=== PATIENT | male | born 1950 | race Two or more races ===

== ENCOUNTER 2019-05-30 16:11 | Emergency (ER) | payer MEDICARE, BC ==
[~2019-05-30] VITALS: Ht 177.8 cm; Wt 77.1 kg
[2019-05-30] MEDS ORDERED: SODIUM CHLORIDE 0.9% 1,000 ML IV ONE (16:25)
[2019-05-30 17:17] LABS: Basophils # (auto) 0 uL; Basophils % (auto) 0.4 % (0.0-2.0); Eosinophils # (auto) 0.2 uL; Eosinophils % (auto) 1.3 % (0.0-7.0); Hemoglobin 15.8 g/dL (13.5-17.5); Lymphocytes % (auto) 8.7 % (10.0-50.0); Mean Corpuscular Hgb Conc. 34.3 g/dL (32.0-36.0); Mean Corpuscular Volume 87.4 fL (80.0-100.0); Monocytes # (auto) 0.8 uL; Monocytes % (auto) 6.9 % (0.0-12.0); Neutrophils # (auto) 9.9 uL; Neutrophils % (auto) 82.7 % (37.0-80.0); Nucleated Red Blood Cells % 0.1 %; Platelet Count (auto) 227 10^3/uL (140-450); Red Blood Cells 5.26 10^6/uL (4.5-5.90); Red Cell Distribution Width 13.3 % (11.8-14.3); White Blood Cell 11.9 10^3/uL (4.4-10.8)
[2019-05-30 17:34] LABS: Alanine Aminotransferase 23 U/L (16-61); Anion Gap 7 (5-15); Blood Urea Nitrogen 17 mg/dL (7-18); Calcium 8.6 mg/dL (8.5-10.1); Carbon Dioxide 25 mmol/L (21-32); Chloride 106 mmol/L (98-107); Glucose 135 mg/dL (74-106); Potassium 3.6 mmol/L (3.5-5.1); Sodium 138 mmol/L (136-145)
[2019-05-30 17:40] LABS: Alkaline Phosphatase 96 U/L (45-117); Aspartate Aminotransferase 20 U/L (15-37); BUN/Creatinine Ratio 15.6; Bilirubin, Total 0.6 mg/dL (0.2-1.0); GFR African American 86 mL/min; GFR Non-African American 71 mL/min; Total Protein 7.7 g/dL (6.4-8.2)
[2019-05-30 19:00] VITALS: BP 153/77
== END 2019-05-30 19:05 | disposition home or self-care (01) ==
LOC: EDBD 16:11 → ER 16:21
DX: R55 Syncope and collapse (principal); R00.1 Bradycardia, unspecified; I10 Essential (primary) hypertension
CPT/HCPCS: 36415; 70450; 71046; 80053; 83735; 84443; 84484; 85025; 85379; 93005; 96360; 96361; 99284; J7030

== ENCOUNTER 2022-10-29 19:46 | Inpatient (IN) | payer BC, OTHER ==
[~2022-10-29] VITALS: Ht 175.3 cm; Wt 80.0 kg
[2022-10-29] MEDS ORDERED: ASPirin 81 mg TAB PO ONE (20:15)
[2022-10-29] MEDS ORDERED: cloNIDine HCL 0.1 MG TAB PO ONE (20:15)
[2022-10-29 21:02] LABS: Basophils # (auto) 0.1 10 ^3/uL (0-0.2); Basophils % (auto) 0.6 % (0.0-2.0); Eosinophils # (auto) 0.2 10 ^3/uL (0-0.8); Eosinophils % (auto) 1.5 % (0.0-7.0); Hemoglobin 15.8 g/dL (13.5-17.5); Lymphocytes % (auto) 19.3 % (10.0-50.0); Mean Corpuscular Volume 88.5 fL (80.0-100.0); Monocytes # (auto) 0.8 10 ^3/uL (0-1.3); Neutrophils # (auto) 7.2 10 ^3/uL (1.6-8.6); Neutrophils % (auto) 70.6 % (37.0-80.0); Nucleated Red Blood Cells % 0.1 %; Red Blood Cells 5.08 10^6/uL (4.5-5.90); Red Cell Distribution Width 13.4 % (11.8-14.3); White Blood Cell 10.3 10^3/uL (4.4-10.8)
[2022-10-29 21:04] LABS: Albumin 3.8 g/dL (3.4-5.0); Calcium 8.7 mg/dL (8.5-10.1); Magnesium 2.2 mg/dL (1.6-2.6); Potassium 4.1 mmol/L (3.5-5.1)
[2022-10-29 21:07] LABS: BUN/Creatinine Ratio 15.7 (10.0-20.0); Bilirubin, Total 0.7 mg/dL (0.2-1.0); Total Protein 6.8 g/dL (6.4-8.2)
[2022-10-29] MEDS ORDERED: dilTIAZem 25 MG/5 ML VIAL IV ONE ×3 (21:15→22:15)
[2022-10-29 21:26] LABS: INR 1.06 (0.9-1.15); Partial Thromboplastin Time 30.4 sec (24.6-33.4)
[2022-10-29 22:29] LABS: Urine Bacteria NONE SEEN /hpf (None Seen); Urine Blood Negative /uL (Negative); Urine Hyaline Cast FEW /lpf (0 - 2); Urine Mucus FEW (None Seen); Urine Specific Gravity 1.023 (1.001-1.035); Urine WBC <1 /hpf (0 - 3)
[2022-10-29 22:41] LABS: Alcohol, Urine < 3.0 mg/dL (0-10); Amphetamine Screen, Urine NEGATIVE (NEGATIVE); Barbiturate Scree,Urine NEGATIVE (NEGATIVE); Benzodiazephine Screen, Urine NEGATIVE (NEGATIVE); Cannabinoid Screen, Urine NEGATIVE (NEGATIVE); Cocaine Screen, Urine NEGATIVE (NEGATIVE); Opiate Scree,Urine NEGATIVE (NEGATIVE); Phencyclidine Screen, Urine NEGATIVE (NEGATIVE)
[2022-10-29] MEDS ORDERED: IOHEXOL 350 MG/ML 100ML IJ ONE (22:41)
[2022-10-29] MEDS ORDERED: HYDROmorphone HCL 2 MG/ML VL/or syr IV ONE (23:45)
[2022-10-29] MEDS ORDERED: ONDANSETRON HCL 4 MG/2 ML VIAL IV ONE (23:45)
[2022-10-30] MEDS ORDERED: hydrALAZINE HCL 20 MG/ML VL IV ONE (01:00)
[2022-10-30] MEDS ORDERED: PIPERACILLIN-TAZOB 3.375GM 100 ML IV ONE (01:45)
[2022-10-30] MEDS ORDERED: SODIUM CHLORIDE 0.9% 1,000 ML IV SCH (05:15)
[2022-10-30] MEDS ORDERED: MORPHINE SULFATE INJ 2 MG/ml SYRG IV PRN (05:15)
[2022-10-30] MEDS: metroNIDAZOLE 500MG/100ML 100 ML IV SCH ×3 (05:45→22:08)
[2022-10-30] MEDS: hydrALAZINE HCL 20 MG/ML VL IV PRN (05:46)
[2022-10-30] MEDS ORDERED: PANTOPRAZOLE 40 MG/10 ML VIAL INJ IV SCH (10:00)
[2022-10-30] MEDS: cefTRIAXone 1GM/50ML D5W 50 ML IV SCH (11:01)
[2022-10-30] MEDS: D5W/SOD CHL 0.45% 1,000 ML IV SCH (15:23)
[2022-10-30 22:32] VITALS: BP 154/72
[2022-10-31] MEDS ORDERED: GUAN2TAB6 PO (01:33)
[2022-10-31] MEDS: D5W/SOD CHL 0.45% 1,000 ML IV SCH (03:22)
[2022-10-31] MEDS: hydrALAZINE HCL 20 MG/ML VL IV PRN (03:54)
[2022-10-31 05:00] VITALS: BP 182/67
[2022-10-31] MEDS: metroNIDAZOLE 500MG/100ML 100 ML IV SCH ×3 (05:47→22:04)
[2022-10-31] MEDS: cefTRIAXone 1GM/50ML D5W 50 ML IV SCH (07:08)
[2022-10-31 07:13] LABS: Basophils # (auto) 0 10 ^3/uL (0-0.2); Basophils % (auto) 0.1 % (0.0-2.0); Eosinophils # (auto) 0 10 ^3/uL (0-0.8); Hematocrit 43.7 % (41.0-53.0); Lymphocytes # (auto) 0.7 10 ^3/uL (0.4-5.4); Lymphocytes % (auto) 3.4 % (10.0-50.0); Mean Corpuscular Hemoglobin 30.3 pg (28.0-32.0); Mean Corpuscular Hgb Conc. 34.2 g/dL (32.0-36.0); Mean Corpuscular Volume 88.5 fL (80.0-100.0); Monocytes # (auto) 1.1 10 ^3/uL (0-1.3); Monocytes % (auto) 5.9 % (0.0-12.0); Neutrophils # (auto) 17.2 10 ^3/uL (1.6-8.6); Neutrophils % (auto) 90.6 % (37.0-80.0); Red Blood Cells 4.94 10^6/uL (4.5-5.90); Red Cell Distribution Width 13.7 % (11.8-14.3)
[2022-10-31 07:20] LABS: Albumin 3.2 g/dL (3.4-5.0); Calcium 8.3 mg/dL (8.5-10.1); Potassium 3.4 mmol/L (3.5-5.1)
[2022-10-31 07:26] LABS: BUN/Creatinine Ratio 12.9 (10.0-20.0); Bilirubin, Total 1.8 mg/dL (0.2-1.0); Total Protein 6.5 g/dL (6.4-8.2)
[2022-10-31 09:00] VITALS: BP 145/71
[2022-10-31] MEDS ORDERED: D5W/SOD CHL 0.45%/KCL 40MEQ 1,000 ML IV SCH (10:00)
[2022-10-31] MEDS: MEPERIDINE HCL (25 MG/ML) 1ML VIAL IV PRN (10:12)
[2022-10-31 13:00] VITALS: BP 149/68
[2022-10-31] MEDS ORDERED: LIDOCAINE W/ EPINEPHRINE 1% 20ML VIAL ONE ×2 (13:18→14:07)
[2022-10-31] MEDS ORDERED: BUPIVACAINE 0.25% INJ 50ML VIAL ONE (13:20)
[2022-10-31] MEDS ORDERED: ceFAZolin 1GM/50ML 100 ML IV ONE (13:49)
[2022-10-31] MEDS ORDERED: fentaNYL CITRATE 100 MCG/2 ML VL ONE (14:18)
[2022-10-31] MEDS ORDERED: MEPERIDINE HCL (50 MG/ML) 1 ML VIAL ONE (14:19)
[2022-10-31] MEDS ORDERED: MIDAZOLAM HCL 2MG/2ML 2ml VIAL (1mg/ml) ONE (14:19)
[2022-10-31] MEDS ORDERED: SUCCINYLCHOLINE CHLORIDE 20 MG/ML 10ML VIAL IV ONE ×2 (14:25→15:33)
[2022-10-31] MEDS ORDERED: DexAMETHasone SOD PHOS 10MG/1ML VIAL INJ ONE (14:53)
[2022-10-31] MEDS ORDERED: ONDANSETRON HCL 4 MG/2 ML VIAL ONE (14:54)
[2022-10-31] MEDS ORDERED: diphenhdrAMINE HCL 50 MG/1 ML VL ONE (14:54)
[2022-10-31] MEDS ORDERED: ONDANSETRON HCL 4 MG/2 ML VIAL IV PRN (15:30)
[2022-10-31] MEDS ORDERED: LABETALOL HCL 5 MG/ML 4ML SYRINGE IV PRN (15:30)
[2022-10-31] MEDS ORDERED: ePHEDrine SULFATE 50 MG/ML AMP IV PRN (15:30)
[2022-10-31] MEDS ORDERED: MIDAZOLAM HCL 2MG/2ML 2ml VIAL (1mg/ml) IV PRN (15:30)
[2022-10-31] MEDS ORDERED: HYDROmorphone HCL 2 MG/ML VL/or syr IV PRN (15:30)
[2022-10-31] MEDS ORDERED: MORPHINE SULFATE 4 MG/ML SYR/VIAL IV PRN (15:30)
[2022-10-31] MEDS ORDERED: SUGAMMADEX 200mg/2ml Vial (100MG/ML) IV ONE (16:05)
[2022-10-31] MEDS: D5W/SOD CHL 0.45%/KCL 20MEQ 1,000 ML IV SCH (16:30)
[2022-10-31] MEDS ORDERED: HYDROmorphone HCL 2 MG/ML VL/or syr IV ONE ×4 (16:35→17:05)
[2022-10-31 22:00] VITALS: BP 183/98
[2022-10-31] MEDS ORDERED: LABETALOL HCL 5 MG/ML 4ML SYRINGE IV ONE (22:00)
[2022-10-31] MEDS: GUANFACINE 4 MG PO SCH (22:00)
[2022-11-01] MEDS: MEPERIDINE HCL (25 MG/ML) 1ML VIAL IV PRN ×3 (01:32→17:17)
[2022-11-01] MEDS: D5W/SOD CHL 0.45%/KCL 20MEQ 1,000 ML IV SCH ×2 (02:30→13:39)
[2022-11-01 05:00] VITALS: BP 189/93
[2022-11-01] MEDS: metroNIDAZOLE 500MG/100ML 100 ML IV SCH ×3 (06:06→21:14)
[2022-11-01] MEDS: ONDANSETRON HCL 4 MG/2 ML VIAL IV PRN (06:13)
[2022-11-01] MEDS: LABETALOL HCL 5 MG/ML 4ML SYRINGE IV PRN ×2 (06:31→17:18)
[2022-11-01] MEDS: cefTRIAXone 1GM/50ML D5W 50 ML IV SCH (07:24)
[2022-11-01 08:00] VITALS: BP 161/87
[2022-11-01 08:06] LABS: Basophils # (auto) 0 10 ^3/uL (0-0.2); Basophils % (auto) 0.1 % (0.0-2.0); Eosinophils # (auto) 0 10 ^3/uL (0-0.8); Hematocrit 40.2 % (41.0-53.0); Hemoglobin 13.7 g/dL (13.5-17.5); Lymphocytes # (auto) 0.4 10 ^3/uL (0.4-5.4); Lymphocytes % (auto) 2.9 % (10.0-50.0); Mean Corpuscular Hemoglobin 30.3 pg (28.0-32.0); Mean Corpuscular Hgb Conc. 34.1 g/dL (32.0-36.0); Mean Corpuscular Volume 88.8 fL (80.0-100.0); Monocytes # (auto) 0.8 10 ^3/uL (0-1.3); Monocytes % (auto) 5.5 % (0.0-12.0); Neutrophils # (auto) 13.2 10 ^3/uL (1.6-8.6); Neutrophils % (auto) 91.5 % (37.0-80.0); Red Blood Cells 4.52 10^6/uL (4.5-5.90); Red Cell Distribution Width 13.8 % (11.8-14.3); White Blood Cell 14.5 10^3/uL (4.4-10.8)
[2022-11-01 08:17] LABS: Albumin 2.9 g/dL (3.4-5.0); Potassium 3.7 mmol/L (3.5-5.1)
[2022-11-01 08:21] LABS: BUN/Creatinine Ratio 18.5 (10.0-20.0); Bilirubin, Total 0.7 mg/dL (0.2-1.0); Total Protein 6.2 g/dL (6.4-8.2)
[2022-11-01] MEDS: PANTOPRAZOLE 40 MG/10 ML VIAL INJ IV SCH (09:46)
[2022-11-01] MEDS: GUANFACINE 4 MG PO SCH ×2 (10:00→21:15)
[2022-11-01 12:00] VITALS: BP 179/89
[2022-11-01 16:00] VITALS: BP 194/90
[2022-11-01] MEDS ORDERED: LABETALOL HCL 5 MG/ML 4ML SYRINGE IV PRN (17:00)
[2022-11-01 22:00] VITALS: BP 187/96
[2022-11-02] MEDS: MEPERIDINE HCL (25 MG/ML) 1ML VIAL IV PRN (04:36)
[2022-11-02] MEDS: D5W/SOD CHL 0.45%/KCL 20MEQ 1,000 ML IV SCH ×3 (05:34→18:30)
[2022-11-02] MEDS: metroNIDAZOLE 500MG/100ML 100 ML IV SCH ×3 (05:34→22:22)
[2022-11-02] MEDS: cefTRIAXone 1GM/50ML D5W 50 ML IV SCH (06:49)
[2022-11-02 07:09] LABS: Calcium 8.1 mg/dL (8.5-10.1); Potassium 3.6 mmol/L (3.5-5.1)
[2022-11-02 07:11] LABS: BUN/Creatinine Ratio 24.3 (10.0-20.0)
[2022-11-02 07:23] LABS: Basophils # (auto) 0 10 ^3/uL (0-0.2); Basophils % (auto) 0.1 % (0.0-2.0); Eosinophils # (auto) 0 10 ^3/uL (0-0.8); Hematocrit 40.1 % (41.0-53.0); Lymphocytes # (auto) 0.8 10 ^3/uL (0.4-5.4); Lymphocytes % (auto) 5.4 % (10.0-50.0); Mean Corpuscular Hemoglobin 30.6 pg (28.0-32.0); Mean Corpuscular Volume 87.5 fL (80.0-100.0); Monocytes % (auto) 6.6 % (0.0-12.0); Neutrophils # (auto) 13.3 10 ^3/uL (1.6-8.6); Neutrophils % (auto) 87.9 % (37.0-80.0); Red Blood Cells 4.58 10^6/uL (4.5-5.90); Red Cell Distribution Width 13.8 % (11.8-14.3); White Blood Cell 15.1 10^3/uL (4.4-10.8)
[2022-11-02 08:00] VITALS: BP 204/95
[2022-11-02] MEDS: PANTOPRAZOLE 40 MG/10 ML VIAL INJ IV SCH (09:52)
[2022-11-02] MEDS: GUANFACINE 4 MG PO SCH ×2 (09:53→22:22)
[2022-11-02 12:00] VITALS: BP 197/104
[2022-11-02] MEDS ORDERED: CLINIMIX PER PHARMACY 0 ML IV SCH (12:15)
[2022-11-02] MEDS ORDERED: cloNIDine 0.2 mg/24hr 7DAY PATCH TD ONE (12:15)
[2022-11-02 13:10] LABS: Magnesium 2.1 mg/dL (1.6-2.6); Phosphorus 1.6 mg/dL (2.5-4.90)
[2022-11-02] MEDS ORDERED: GASTROGRAFIN 120 ML SOL ONE (15:07)
[2022-11-02] MEDS ORDERED: POTASSIUM PHOSPHATE 44 MEQ in D5W 5% 250 ML IV ONE (16:00)
[2022-11-02] MEDS: ONDANSETRON HCL 4 MG/2 ML VIAL IV PRN (18:39)
[2022-11-02] MEDS ORDERED: AMINO ACID INFUSION IN D10W 1,000 ML IV NR (20:00)
[2022-11-02 22:30] VITALS: BP 182/88
[2022-11-02 23:23] VITALS: BP 201/102
[2022-11-02] MEDS: ACCU-CHEK COMFORT CURVE STRIP VI SCH (23:58)
[2022-11-02] MEDS: InsuLIN REG 1unit/0.01ml Soln (100units/ml) SC SCH (23:58)
[2022-11-03] MEDS ORDERED: DEXTROSE (50%) 50ML SYRG IV SCH
[2022-11-03 00:35] VITALS: BP 167/74
[2022-11-03] MEDS: D5W/SOD CHL 0.45%/KCL 20MEQ 1,000 ML IV SCH (04:30)
[2022-11-03 05:39] VITALS: BP 178/90
[2022-11-03] MEDS: InsuLIN REG 1unit/0.01ml Soln (100units/ml) SC SCH (05:42)
[2022-11-03] MEDS: ACCU-CHEK COMFORT CURVE STRIP VI SCH (05:45)
[2022-11-03] MEDS: metroNIDAZOLE 500MG/100ML 100 ML IV SCH ×2 (05:48→14:00)
[2022-11-03 06:28] LABS: Potassium 3.3 mmol/L (3.5-5.1)
[2022-11-03 06:36] LABS: BUN/Creatinine Ratio 27.4 (10.0-20.0); Bilirubin, Total 0.9 mg/dL (0.2-1.0); Calcium 7.9 mg/dL (8.5-10.1); Magnesium 2.4 mg/dL (1.6-2.6); Phosphorus 1.4 mg/dL (2.5-4.90); Total Protein 6.4 g/dL (6.4-8.2)
[2022-11-03] MEDS: cefTRIAXone 1GM/50ML D5W 50 ML IV SCH (06:42)
[2022-11-03 07:12] LABS: Basophils # (auto) 0 10 ^3/uL (0-0.2); Basophils % (auto) 0.2 % (0.0-2.0); Eosinophils # (auto) 0.1 10 ^3/uL (0-0.8); Eosinophils % (auto) 1.1 % (0.0-7.0); Hematocrit 42.6 % (41.0-53.0); Hemoglobin 14.3 g/dL (13.5-17.5); Lymphocytes % (auto) 11.1 % (10.0-50.0); Mean Corpuscular Hemoglobin 30.5 pg (28.0-32.0); Mean Corpuscular Hgb Conc. 33.6 g/dL (32.0-36.0); Mean Corpuscular Volume 90.8 fL (80.0-100.0); Monocytes % (auto) 11.2 % (0.0-12.0); Neutrophils # (auto) 6.9 10 ^3/uL (1.6-8.6); Neutrophils % (auto) 76.4 % (37.0-80.0); Nucleated Red Blood Cells % 0.2 %; Red Blood Cells 4.69 10^6/uL (4.5-5.90); Red Cell Distribution Width 13.8 % (11.8-14.3)
[2022-11-03] MEDS: PANTOPRAZOLE 40 MG/10 ML VIAL INJ IV SCH (09:59)
[2022-11-03] MEDS: GUANFACINE 4 MG PO SCH (09:59)
[2022-11-03 10:00] VITALS: BP 104/71
[2022-11-03 10:06] VITALS: BP 190/80
[2022-11-03] MEDS ORDERED: POTASSIUM PHOSPHATE 44 MEQ in D5W 5% 250 ML IV ONE (10:30)
[2022-11-03] MEDS ORDERED: diphenhdrAMINE HCL 25 MG CAP PO PRN (11:30)
[2022-11-03 13:17] VITALS: BP 172/85
[2022-11-03] MEDS ORDERED: TRAM50TA2 PO (13:32)
[2022-11-03] MEDS ORDERED: LEVO500T91 PO (13:32)
[2022-11-03] MEDS ORDERED: DOCU-94 PO (13:32)
[2022-11-03] MEDS ORDERED: MET500T PO (13:32)
[2022-11-03 13:49] VITALS: BP 198/89
== END 2022-11-03 17:00 | disposition home or self-care (01) | DRG 854 ==
LOC: ER 19:53 → OVERFLOW 10-30 05:13 → WEST WING 10-30 21:21 → TELE-WESTW 11-01 18:49
PROVIDERS: ADMIT Nurse Practitioner; ATTEND Nurse Practitioner Acute Care
PROC: 0DN80ZZ Release Small Intestine, Open Approach (ICD-10-PCS; 2022-10-31)
PROC: 0FT44ZZ Resection of Gallbladder, Percutaneous Endoscopic Approach (ICD-10-PCS; principal; 2022-10-31 14:22)
DX: A41.9 Sepsis, unspecified organism (principal); K43.0 Incisional hernia with obstruction, without gangrene; K80.10 Calculus of gallbladder with chronic cholecystitis without obstruction; I16.0 Hypertensive urgency; I10 Essential (primary) hypertension; E78.5 Hyperlipidemia, unspecified
CPT/HCPCS: 36415; 70450; 71045; 71260; 74177; 74250; 76705; 78226; 80048; 80053; 80307; 81001; 82962; 83605; 83690; 83735; 83880; 84100; 84484; 85025; 85379; 85610; 85730; 86850; 86900; 86901; 87040; 93005; 93306; 96365; 96375; 99291; C9113; G0378; J0330; J0690; J0696; J1100; J1815; J2250; J2405; J2543; J3490; J7060

== ENCOUNTER → 2023-04-26 | Outpatient (CLI) | payer OTHER ==
[~2023-04-26] MED LIST: DOCU-94 PO; GUAN2TAB6 PO; LEVO500T91 PO; MET500T PO; TRAM50TA2 PO
== END | disposition home or self-care (01) ==
LOC: LAB 11:42
PROVIDERS: ATTEND Internal Medicine
DX: Z12.11 Encounter for screening for malignant neoplasm of colon (principal)
CPT/HCPCS: 82274

== ENCOUNTER 2023-07-15 10:08 | Emergency (ER) | payer OTHER ==
[~2023-07-15] VITALS: Ht 175.3 cm; Wt 78.8 kg
[2023-07-15 14:01] LABS: Urine Bacteria NONE SEEN /hpf (None Seen); Urine Blood Negative /uL (Negative); Urine Clarity Clear (Clear); Urine Color Yellow (Yellow); Urine Hyaline Cast FEW /lpf (0 - 2); Urine Mucus FEW (None Seen); Urine Protein, UAD 1+ (Negative); Urine Specific Gravity 1.028 (1.001-1.035); Urine WBC 1 /hpf (0 - 3); Urine pH 5.5 (5.0-8.0)
[2023-07-15 15:04] VITALS: BP 190/92; PULSE 72; RESP 14; O2SAT 95
== END 2023-07-15 15:14 | disposition home or self-care (01) ==
LOC: ER 10:08
DX: N50.3 Cyst of epididymis (principal); I10 Essential (primary) hypertension; Z85.9 Personal history of malignant neoplasm, unspecified; Z98.890 Other specified postprocedural states; Z79.899 Other long term (current) drug therapy
CPT/HCPCS: 76870; 81001